=== PATIENT | female | born 1980 | race Caucasian/White ===

== ENCOUNTER 2016-09-21 11:27 | Emergency (ER) | payer OTHER ==
[~2016-09-21] VITALS: Ht 177.8 cm; Wt 69.0 kg
[2016-09-21 11:30] VITALS: BP 108/82; PULSE 70; RESP 16; TEMP 97.7; O2SAT 97
[2016-09-21] MEDS ORDERED: PROP20TA3 PO (11:38)
[2016-09-21] MEDS ORDERED: SERT-129 PO (11:38)
--- NOTE | 2016-09-21 12:14 | PD ---
HPI Chief Complaint: Laceration/Skin Injury Time Seen by Provider: 11:35 Travel History International Travel<30 days: No Contact w/Intl Traveler<30days: No Traveled to known affect area: No History of Present Illness HPI 36-year-old female since emergency department for evaluation of laceration to right foot. [place] she she was digging in the sand with a shovel when it hit her foot causing a laceration. She has pain at the site of the laceration, nonradiating, no exacerbating or alleviating factors, severity 5 out of 10. She reports normal sensation and movement within the toes. Tetanus status out of date. [facility] Past Medical History Medical History: Denies Significant Hx Hypertension: Yes Tetanus Vaccination: > 5 Years Influenza Vaccination: Yes ?: Not LMP: 09/14/16 Past Surgical History Section: Yes (X's 2) Social History Alcohol Use: Yes (Occ.) Tobacco Use: No Substance Use: No Allergies-Medications (Allergen,Severity, Reaction): Coded Allergies: Erythromycin (Verified Allergy, Intermediate, HIVES, 09/21/16) Sulfa (Verified Allergy, Intermediate, HIVES, 09/21/16) Reported Meds & Prescriptions Reported Meds & Active Scripts Active Reported Sertraline (Sertraline HCl) 100 Mg Tab 150 Mg PO HS Propranolol (Propranolol HCl) 20 Mg Tab 20 Mg PO Q12HR Review of Systems Except as stated in HPI: all other systems reviewed are Neg Skin: Positive Other (laceration right foot) Physical Exam Narrative GENERAL: Alert, well-appearing female. No acute distress SKIN: Focused skin assessment warm/dry. 3 cm laceration to right foot medial aspect. HEAD: Atraumatic. Normocephalic. EYES: Pupils equal and round. No scleral icterus. No injection or drainage. ENT: No nasal bleeding or discharge. Mucous membranes pink and moist. NECK: Trachea midline. No JVD. CARDIOVASCULAR: Regular rate and rhythm. No murmur appreciated. RESPIRATORY: No accessory muscle use. Clear to auscultation. Breath sounds equal bilaterally. GASTROINTESTINAL: Abdomen soft, non-tender, nondistended. Hepatic and splenic margins not palpable. MUSCULOSKELETAL: No obvious deformities. No clubbing. No cyanosis. No edema. Right foot: 3 cm laceration below aspect. No tendon injury. No foreign body visualized within the wound. Patient has normal sensation and range of motion within the foot and toes. NEUROLOGICAL: Awake and alert. No obvious cranial nerve deficits. Motor grossly within normal limits. Normal speech. PSYCHIATRIC: Appropriate mood and affect; insight and judgment normal. Data Data Last Documented VS Vital Signs Date Time Temp Pulse Resp B/P Pulse Ox O2 Delivery O2 Flow Rate FiO2 09/21/16 11:30 97.7 70 16 108/82 97 MDM Medical Decision Making Medical Screen Exam Complete: Yes Emergency Medical Condition: Yes Differential Diagnosis Laceration, tendon injury, abrasion, contusion Narrative Course 36-year-old female present to the emergency department for evaluation of laceration to right foot caused by a shovel while building a [employer]. Patient has a 3 cm laceration to the right foot medial aspect. No tendon injury visualized. The wound is covered with sand on the beach. The extremity is neurovascularly intact. Wound repaired after extensive irrigation. Tetanus status updated. Patient put on prophylactic antibiotics. Procedures Procedure Narrative LACERATION LOCATION: Right foot LENGTH: 3 cm NUMBER OF STITCHES/AURORA: 5 Wound irrigated with copious amounts of sterile saline REPAIR: The area of the laceration was prepped with Betadine and sterilely draped. The laceration was infiltrated with 1% lidocaine. The wound was copiously irrigated and explored without evidence of foreign body, tendon injury or neurovascular injury. The wound was closed using 4-0 Ethilon. This was a angle layer repair. A sterile dressing was applied. The patient was advised to keep the dressing clean and dry. Patient tolerated the procedure well. Diagnosis Primary Impression: Laceration of right foot Qualified Code: S91.311A - Laceration of right foot, initial encounter Referrals: Primary Care Physician Additional Instructions: Do not submerge the wound with and water. YOU may begin showering in the 24 hours. Take the antibiotics as prescribed. Sutures need to be removed in 7-10 days. Scripts Cephalexin (Keflex)500 Mg [id number] Mg PO Q6H #28 CAP Prov:Laura Villalobos 09/21/16 Disposition: 01 DISCHARGE HOME Condition: Stable Laura Villalobos Sep 21, 2016 12:14
[2016-09-21] MEDS ORDERED: CEPH-460 PO (12:15)
[2016-09-21] MEDS ORDERED: TETANUS/DIPHTHERIA TOXOID ADULT 0.5 ML VIAL IM ONE (12:15)
== END 2016-09-21 12:25 | disposition home or self-care (01) ==
LOC: PHEFT 11:27
DX: S91.311A Laceration without foreign body, right foot, initial encounter (principal); W22.8XXA Striking against or struck by other objects, initial encounter; Y93.89 Activity, other specified; Y92.832 Beach as the place of occurrence of the external cause; I10 Essential (primary) hypertension
CPT/HCPCS: 12002; 90471; 90714